=== PATIENT | female | born 1990 | race Caucasian/White ===

== ENCOUNTER → 2024-06-23 10:07 | Outpatient (BNVA) | payer BC, SELFPAY | PROVIDERS: PCP Nurse Practitioner; Visit Provider Nurse Practitioner | DX: O21.0 Mild hyperemesis gravidarum (principal); N92.6 Irregular menstruation, unspecified | CPT/HCPCS: 81025 ==

== ENCOUNTER → 2024-07-22 15:04 | Outpatient (BNVA) | payer BC, SELFPAY | PROVIDERS: PCP Nurse Practitioner; Visit Provider Nurse Practitioner Women's Health | DX: N91.2 Amenorrhea, unspecified (principal) | CPT/HCPCS: 81025 ==

== ENCOUNTER → 2024-07-28 15:18 | Outpatient (BNVA) | payer BC, OTHER, SELFPAY | PROVIDERS: PCP Nurse Practitioner; Visit Provider Nurse Practitioner Women's Health | DX: Z36.87 Encounter for antenatal screening for uncertain dates (principal); Z3A.11 11 weeks gestation of pregnancy | CPT/HCPCS: 76801 ==

== ENCOUNTER → 2024-07-29 14:15 | Outpatient (BNVA) | payer BC, OTHER, SELFPAY | PROVIDERS: PCP Nurse Practitioner; Visit Provider Nurse Practitioner Women's Health | DX: Z34.90 Encounter for supervision of normal pregnancy, unspecified, unspecified trimester (principal); Z34.80 Encounter for supervision of other normal pregnancy, unspecified trimester | CPT/HCPCS: 80307; 84315; 85025; 86592; 86762; 86803; 86850; 86900; 87086; 87340; 87806 ==

== ENCOUNTER 2024-08-03 12:36 | Emergency (ER) | payer OTHER, SELFPAY ==
[2024-08-03 12:50] VITALS: BP 107/68; PULSE 89; RESP 16; TEMP 36.6; O2SAT 100; BMI 17.2
[2024-08-03 13:19] LABS: Basophils % 0.3 %; Eosinophils % 0.2 %; Hematocrit 41.6 % (36-47); Lymphocytes # 1.9 10^3/uL (0.8-4.8); Lymphocytes % 15.8 %; Mean Corpuscular HGB Conc 33.4 g/dL (30-55); Mean Corpuscular Hemoglobin 31.1 pg (27-33); Mean Corpuscular Volume 93.1 fl (85-98); Mean Platelet Volume 9.7 fL (7.4-10.4); Monocytes # 0.7 10^3/uL (0.2-0.9); Monocytes % 5.8 %; Neutrophils # 9.31 10^3/uL (1.8-7.7); Neutrophils % 77.5 %; Nucleated Red Blood Cells % 0 %; Platelet Count 291 10^3/cmm (157-399); Red Blood Count 4.47 10^6/uL (3.85-5.65); Red Cell Distribution Width 12.3 % (12.1-15.1); White Blood Count 12.03 10^3/uL (3.29-11.43)
--- NOTE | 2024-08-03 13:24 | ED_ITS ---
HPI - Nausea/Vomiting/Diarrhea 2 General: Chief complaint: Nausea/Vomiting/Diarrhea Stated complaint: morning sickness that won't go away Time Seen by Provider: 08/03/24 13:07 History of Present Illness: 33-year-old female who is approximately 12 weeks presents emergency room with continued nausea and vomiting concern for dehydration. Her OB had tried to get her stop taking Zofran for a while because she been taking it too much they thought she says. No focal abdominal pain. No altered mental status. No pregnancies symptoms. No bleeding. No vaginal discharge. No fevers. Related Data Home Medications Medication Instructions Recorded Confirmed docosahexaenoic acid 200 mg mg PO DAILY 07/22/24 07/29/24 capsule ( DHA) Previous Rx's Medication Instructions Recorded doxylamine 10 mg-pyridoxine (vit 1 tab PO .COMPLEX #120 tabs 07/29/24 B6) 10 mg tablet,delayed release (Diclegis) promethazine 25 mg tablet 25 mg PO Q6H PRN nausea and 07/29/24 vomiting #30 tabs ondansetron 8 mg disintegrating 8 mg PO Q6H #14 tabs 08/03/24 tablet promethazine 25 mg rectal 25 mg FL Q6H PRN nausea and 08/03/24 suppository vomiting #12 ea Allergies Allergy/AdvReac Type Severity Reaction Status Date / Time amoxicillin [From Augmentin] Allergy Intermediate ALGY-Rash Verified 07/29/24 14:01 clavulanic acid Allergy Intermediate ALGY-Rash Verified 07/29/24 14:01 [From Augmentin] Review of Systems 2 Narrative: Constitutional symptoms: Negative except as documented in HPI. Skin symptoms: Negative except as documented in HPI. Eye symptoms: Negative except as documented in HPI. ENMT symptoms: Negative except as documented in HPI. Respiratory symptoms: Negative except as documented in HPI. Cardiovascular symptoms: Negative except as documented in HPI. Gastrointestinal symptoms: Negative except as documented in HPI. Genitourinary symptoms: Negative except as documented in HPI. Musculoskeletal symptoms: Negative except as documented in HPI. Neurologic symptoms: Negative except as documented in HPI. Psychiatric symptoms: Negative except as documented in HPI. Endocrine symptoms: Negative except as documented in HPI. PFSH ED 2 PFSH: Medical History No pertinent past medical history neghx:htn,dm,thyroid,dvt/pe PCP: Tri ROBBINS Surgical History History of lumpectomy of right breast (~12/2023) December 2023-- self reports fibroadenoma; benign. Performed at [facility] Family History Grandfather Cancer Maternal-bone Paternal- lung from agent orange Grandmother Diabetes maternal Father Hypertension Denies family history of Colon cancer Ovarian cancer Prostate cancer Heart disease Hyperlipidemia Chronic kidney disease (CKD) Breast cancer Bleeding disorder Uterine cancer Thyroid disease Stroke Social History Smoking and tobacco/nicotine status: former use of tobacco/nicotine Female Reproductive History: Para: 2 Spontaneous abortions: No Physical Exam 2 Narrative: EXAM NARRATIVE: General: Alert, no acute distress. Skin: Warm, dry. Head: Normocephalic, atraumatic. Neck: Supple, trachea midline. Eye: Extraocular movements are intact. Ears, nose, mouth and throat: Dry oral mucosa Cardiovascular: Regular, Normal peripheral perfusion. Respiratory: Lungs are clear to auscultation, respirations are non-labored, breath sounds are equal, Symmetrical chest wall expansion. Gastrointestinal: Soft, Nontender, Non distended Musculoskeletal: Normal ROM, no deformity. Neurological: Alert and oriented, No focal neurological deficit observed. Psychiatric: Cooperative, appropriate mood & affect. Course 2 Vital Signs: Vital signs: Vital Signs Temperature 97.9 F 08/03/24 12:50 Pulse Rate 94 08/03/24 15:02 Respiratory Rate 16 08/03/24 12:50 Blood Pressure 115/74 08/03/24 15:02 Pulse Oximetry 98 08/03/24 15:02 Oxygen Delivery Me thod Room Air 08/03/24 15:02 MDM - Nausea/Vomiting/Diarrhea Medical Decision Making Medical decision making: Differential diagnosis for this patient with nausea and vomiting including but not limited to and based on the above HPI, review of systems and physical exam: Urinary tract infection. Appendicitis. Cholecystis. colitis. small bowel obstruction. crohn's flare. pancreatitis. gastritis. peptic ulcer. cyclic vomiting. Viral illness. Influenza. COVID. - Workup - labwork and imaging ordered to evaluate, rule in and rule out above pathologies. Lab Review: Laboratory results were reviewed and interpreted by myself the emergency room physician. White count is 12. Hemoglobin normal at 13.9. BUN and creatinine normal at 10 and 0.5. Urinalysis is negative for infection. I reviewed the patient's medical record. Reexamination: Patient says she is feeling quite a bit better. She is now tolerating some p.o. Fluids and some solids. We are going to give mag citrate at home. Giving some Compazine and Benadryl now so hopefully she can tolerate that at home. Assessment and plan: Nausea and vomiting Dehydration ?Normal saline bolus, IV Zofran, IV Pepcid, IV Compazine and Benadryl. - Discharged home - Discussed plan with patient. Answered any questions. - Evaluation and treatment of this problem were appropriate in the emergency setting. Lab Data 08/03/24 13:08 08/03/24 13:08 Laboratory Results WBC 12.03 10^3/uL (3.29-11.43) H 08/03/24 13:08 RBC 4.47 10^6/uL (3.85-5.65) 08/03/24 13:08 Hgb 13.90 g/dL (11.27-16.99) 08/03/24 13:08 Hct 41.6 % (36-47) 08/03/24 13:08 MCV 93.1 fl (85-98) 08/03/24 13:08 MCH 31.1 pg (27-33) 08/03/24 13:08 MCHC 33.4 g/dL (30-55) 08/03/24 13:08 RDW 12.3 % (12.1-15.1) 08/03/24 13:08 Plt Count 291 10^3/cmm (157-399) 08/03/24 13:08 MPV 9.7 fL (7.4-10.4) 08/03/24 13:08 Neut % (Auto) 77.5 % 08/03/24 13:08 Lymph % (Auto) 15.8 % 08/03/24 13:08 Banner % (Auto) 5.8 % 08/03/24 13:08 Eos % (Auto) 0.2 % 08/03/24 13:08 Baso % (Auto) 0.3 % 08/03/24 13:08 Neut # (Auto) 9.31 10^3/uL (1.8-7.7) H 08/03/24 13:08 Lymph # (Auto) 1.9 10^3/uL (0.8-4.8) 08/03/24 13:08 Banner # (Auto) 0.7 10^3/uL (0.2-0.9) 08/03/24 13:08 Eos # (Auto) 0.0 10^3/uL (0.0-0.8) 08/03/24 13:08 Baso # (Auto) 0.0 10^3/uL (0.0-0.1) 08/03/24 13:08 Nucleated RBC % (auto) 0 % 08/03/24 13:08 Nucleated RBCs # 0.0 /100WBC 08/03/24 13:08 Sodium 135 mmol/L (136-145) L 08/03/24 13:08 Potassium 3.6 mmol/L (3.5-5.1) 08/03/24 13:08 Chloride 100 mmol/L (98-107) 08/03/24 13:08 Carbon Dioxide 22 mmol/L (22-29) 08/03/24 13:08 Anion Gap 16.6 (5-19) 08/03/24 13:08 BUN 10 mg/dL (6-20) 08/03/24 13:08 Creatinine 0.5 mg/dL (0.5-0.9) 08/03/24 13:08 GFR Calculation 143.9 mL/min (90-130) H 08/03/24 13:08 Glucose 111 mg/dL (65-115) 08/03/24 13:08 Calculated Osmolality 280 mOsm/kg (285-295) L 08/03/24 13:08 Calcium 8.8 mg/dL (8.5-10.5) 08/03/24 13:08 Total Bilirubin 1.8 mg/dL (0.15-1.2) H 08/03/24 13:08 AST 18 U/L (0-32) 08/03/24 13:08 ALT 9 U/L (0-33) 08/03/24 13:08 Alkaline Phosphatase 50 U/L (35-105) 08/03/24 13:08 Total Protein 7.8 g/dL (6.6-8.7) 08/03/24 13:08 Albumin 4.2 g/dL (3.5-5.2) 08/03/24 13:08 Globulin 3.6 g/dL (1.3-4.6) 08/03/24 13:08 Urine Color Yellow (Yellow) 08/03/24 14:40 Urine Appearance Clear (CLEAR) 08/03/24 14:40 Urine pH 7.0 (5-7) 08/03/24 14:40 Ur Specific [place] 1.007 (1.005-1.030) 08/03/24 14:40 Urine Protein Negative (Negative) 08/03/24 14:40 Urine Glucose (UA) Negative (Normal) 08/03/24 14:40 Urine Ketones 2+ (Negative) H 08/03/24 14:40 Urine Blood Negative (Negative) 08/03/24 14:40 Urine Nitrate Negative (Negative) 08/03/24 14:40 Urine Bilirubin Negative (Negative) 08/03/24 14:40 Urine Urobilinogen 1.0 mg/dL (Negative) 08/03/24 14:40 Ur Leukocyte Esterase Negative (Negative) 08/03/24 14:40 Urine RBC 0-2 /hpf (0-2) 08/03/24 14:40 Urine WBC 0-5 /hpf (0-5) 08/03/24 14:40 Ur Squamous Epith Cells 0-5 /hpf (0-5) 08/03/24 14:40 Amorphous Sediment Not Reportable 08/03/24 14:40 Urine Bacteria None seen /hpf (NONE) 08/03/24 14:40 Hyaline Casts 0-4 /lpf H 08/03/24 14:40 No radiology studies performed this visit Discharge Plan Discharge Patient Disposition: Home Clinical Impression: Hyperemesis arising during , Dehydration Condition: Stable Prescriptions: New promethazine 25 mg suppository 25 mg FL Q6H PRN (Reason: nausea and vomiting) Qty: 12 0RF ondansetron 8 mg tablet,disintegrating 8 mg PO Q6H Qty: 14 0RF Rx Instructions: Take 1/2-1 tab every 6 hours as needed for nausea and vomiting No Action DHA 200 mg capsule PO DAILY doxylamine-pyridoxine (vit B6) [Diclegis] 10-10 mg tablet,delayed release (DR/EC) 1 tab PO .COMPLEX Qty: 120 0RF Rx Instructions: 2 tabs at hs, then 1 in the am if needed, 1 at noon if needed promethazine 25 mg tablet 25 mg PO Q6H PRN (Reason: nausea and vomiting) Qty: 30 0RF Discharge Orders: Discharge ED (Routine); Ordered 08/03/24 Ordered By: Twila Alfaro Referrals: rTi Gallardo FNP [Primary Care Provider] - Discharge Diet: Advance as tolerated Discharge Activity: Increase activity as tolerated Patient Instructions: Nausea and Vomiting in (ED) Activity Restrictions/Additional Instructions: Thank you for choosing [facility] for your healthcare needs today. Please realize this is an emergency room and that we are providing you with a medical screening exam and this may not be complete and all inclusive of all the testing and or work up that you may need to determine your ailment or severity of your illness. You have been screened and evaluated and felt safe for discharge. Health conditions do change or evolve sometimes and as such it is important that you follow up with your Primary Doctor to be re checked, 3-5 days is a general good time frame for follow up. 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
[2024-08-03 13:38] LABS: Alanine Aminotransferase 9 U/L (0-33); Albumin Level 4.2 g/dL (3.5-5.2); Alkaline Phosphatase 50 U/L (35-105); Anion Gap 16.6 (5-19); Aspartate Amino Transferase 18 U/L (0-32); Blood Urea Nitrogen 10 mg/dL (6-20); Calcium 8.8 mg/dL (8.5-10.5); Carbon Dioxide 22 mmol/L (22-29); Chloride 100 mmol/L (98-107); Creatinine Clr Calc Pharmacy 124.9076; Globulin 3.6 g/dL (1.3-4.6); Glomerular Filtration Rate 143.9 mL/min (90-130); Glucose 111 mg/dL (65-115); Osmolality Calculated 280 mOsm/kg (285-295); Potassium 3.6 mmol/L (3.5-5.1); Sodium 135 mmol/L (136-145); Total Bilirubin 1.8 mg/dL (0.15-1.2); Total Protein 7.8 g/dL (6.6-8.7)
[2024-08-03] MEDS: sodium chloride 0.9% 1,000 ML 999 ML IV (13:41)
[2024-08-03] MEDS: ondansetron 2 mg/ML SDV 2 mL 8 MG IVP (13:43)
[2024-08-03] MEDS: famotidine 20 mg/2 mL INJ 40 MG IVP (13:44)
[2024-08-03] MEDS: magnesium citrate Btl 296 mL PO (13:48)
[2024-08-03 15:02] VITALS: BP 115/74; PULSE 94; O2SAT 98
[2024-08-03 15:04] LABS: Bilirubin Urine Negative (Negative); Blood Urine Negative (Negative); Glucose Urine UA Negative (Normal); Ketones Urine 2+ (Negative); Leukocyte Esterase Urine Negative (Negative); Nitrate Urine Negative (Negative); Protein Urine Negative (Negative); Specific Gravity, Urine 1.007 (1.005-1.030); Urine Appearance Clear (CLEAR); Urine Color Yellow (Yellow)
[2024-08-03 15:09] LABS: Add Urine Microscopic? YES; Bacteria Urine None Seen /hpf; Hyaline Casts Urine 0-4 /lpf; RBC Urine 0-2 /hpf (0-2); Squamous Epithelial Cell Urine 0-5 /hpf (0-5); WBC Urine 0-5 /hpf (0-5)
[2024-08-03] MEDS: diphenhydrAMINE 50 mg/mL SDV 1mL 25 MG IVP (15:32)
[2024-08-03] MEDS: prochlorperazine 10 mg/2 mL Inj IVP (15:32)
[2024-08-03 15:45] VITALS: BP 124/71; PULSE 70; O2SAT 100
== END 2024-08-03 15:47 | disposition home or self-care (01) ==
PROVIDERS: Physician Assistant; Emergency Provider Emergency Medicine; PCP Nurse Practitioner
DX: O21.9 Vomiting of pregnancy, unspecified (principal); E86.0 Dehydration; Z87.891 Personal history of nicotine dependence
CPT/HCPCS: 36415; 80053; 81001; 85025; 96361; 96374; 96375; 99284; J0780; J1200; J2405; J3490; J7030

== ENCOUNTER → 2024-08-09 14:03 | Outpatient (BNVA) | payer OTHER, SELFPAY | PROVIDERS: PCP Nurse Practitioner; Visit Provider Obstetrics & Gynecology | DX: Z34.80 Encounter for supervision of other normal pregnancy, unspecified trimester (principal); Z34.90 Encounter for supervision of normal pregnancy, unspecified, unspecified trimester | CPT/HCPCS: 84315; 87491; 87591 ==

== ENCOUNTER → 2024-09-27 14:16 | Outpatient (BNVA) | payer OTHER, SELFPAY | PROVIDERS: PCP Nurse Practitioner; Visit Provider Obstetrics & Gynecology | DX: Z34.80 Encounter for supervision of other normal pregnancy, unspecified trimester (principal); Z36.9 Encounter for antenatal screening, unspecified | CPT/HCPCS: 76805 ==

== ENCOUNTER → 2024-10-29 08:35 | Outpatient (BNVA) | payer OTHER, SELFPAY | PROVIDERS: PCP Nurse Practitioner; Visit Provider Obstetrics & Gynecology | DX: Z34.80 Encounter for supervision of other normal pregnancy, unspecified trimester (principal) | CPT/HCPCS: 82950; 84315 ==

== ENCOUNTER → 2024-11-17 10:04 | Outpatient (BNVA) | payer OTHER, SELFPAY | PROVIDERS: PCP Nurse Practitioner; Visit Provider Obstetrics & Gynecology | DX: Z34.80 Encounter for supervision of other normal pregnancy, unspecified trimester (principal) | CPT/HCPCS: 84315 ==

== ENCOUNTER → 2024-12-29 13:28 | Outpatient (BNVA) | payer OTHER, SELFPAY | PROVIDERS: PCP Nurse Practitioner; Visit Provider Nurse Practitioner Women's Health | DX: Z34.80 Encounter for supervision of other normal pregnancy, unspecified trimester (principal) | CPT/HCPCS: 76816; 84315 ==

== ENCOUNTER → 2025-01-13 13:02 | Outpatient (BNVA) | payer OTHER, SELFPAY | PROVIDERS: PCP Nurse Practitioner; Visit Provider Obstetrics & Gynecology | DX: Z34.80 Encounter for supervision of other normal pregnancy, unspecified trimester (principal) | CPT/HCPCS: 84315; 87081 ==

== ENCOUNTER → 2025-01-20 10:36 | Outpatient (BNVA) | payer OTHER, SELFPAY | PROVIDERS: PCP Nurse Practitioner; Visit Provider Obstetrics & Gynecology | DX: Z34.80 Encounter for supervision of other normal pregnancy, unspecified trimester (principal) | CPT/HCPCS: 84315 ==

== ENCOUNTER → 2025-01-26 10:51 | Outpatient (BNVA) | payer OTHER, SELFPAY | PROVIDERS: PCP Nurse Practitioner; Visit Provider Obstetrics & Gynecology | DX: Z34.83 Encounter for supervision of other normal pregnancy, third trimester (principal) | CPT/HCPCS: 84315; 85025 ==

== ENCOUNTER → 2025-02-02 10:01 | Outpatient (BNVA) | payer OTHER, SELFPAY | PROVIDERS: PCP Nurse Practitioner; Visit Provider Obstetrics & Gynecology | DX: Z34.80 Encounter for supervision of other normal pregnancy, unspecified trimester (principal) | CPT/HCPCS: 84315 ==

== ENCOUNTER 2025-02-05 07:06 | Inpatient (IN) | payer OTHER, SELFPAY ==
[2025-02-05] VITALS (63 sets, daily range): BP systolic 102–131; BP diastolic 60–83; PULSE 75–130; RESP 15–17; TEMP 36.4–36.8; O2SAT 98–100; BMI 22.8
[2025-02-05] MEDS: miSOPROStol 100 mcg tablet 25 MCG VAGINAL (08:52)
[2025-02-05 09:08] LABS: Basophils % 0.3 %; Eosinophils # 0.1 10^3/uL (0.0-0.8); Eosinophils % 0.6 %; Hematocrit 31.7 % (36-47); Lymphocytes # 1.7 10^3/uL (0.8-4.8); Lymphocytes % 17.7 %; Mean Corpuscular HGB Conc 32.5 g/dL (30-55); Mean Corpuscular Volume 92.4 fl (85-98); Mean Platelet Volume 11.6 fL (7.4-10.4); Monocytes # 0.7 10^3/uL (0.2-0.9); Monocytes % 7.5 %; Nucleated Red Blood Cells % 0 %; Platelet Count 238 10^3/cmm (157-399); Red Blood Count 3.43 10^6/uL (3.85-5.65); Red Cell Distribution Width 13.3 % (12.1-15.1)
[2025-02-05 10:11] LABS: Amphetamines Screen Urine Negative (Negative); Barbiturates Screen Urine Negative (Negative); Benzodiazepines Screen Urine Negative (Negative); Cocaine Screen Urine Negative (Negative); Opiate Screen Urine Negative (Negative); PCP Screen Urine Negative (Negative); THC Screen Urine Positive (Negative)
--- NOTE | 2025-02-05 10:57 | PM.OPHPUD ---
Labor & Delivery H&P Update Date of Procedure: February 05, 2025 Date H&P Performed: 02/02/25 Changes to previous documentation: 34-year-old female G3, P2 at 39.2 weeks gestation by 11-week ultrasound with VICENTE 02/10/2025. Admitted to labor and delivery for elective induction of labor. Cytotec for cervical ripening has been reviewed and consent signed. Patient's records have been reviewed. The only change in her report, patient admits to using marijuana 2 months ago (current positive UDS with marijuana.) EFM?category 1 with contractions q. 1 to 2 minutes after first dose of Cytotec. Cervix?1 cm / 50%/-3 vertex. Admission Diagnosis: Primary indication for procedure: Elective induction of labor with cervical ripening with Cytotec. Planned procedure: Elective induction of labor. Related Problem List Diagnoses (1) 39 weeks gestation of : GBS negative History of marijuana use (2) Positive urine drug screen: (3) Multigravida in third trimester:
[2025-02-05] MEDS: ondansetron 2 mg/ML SDV 2 mL 4 MG IVP (14:08)
[2025-02-05] MEDS: sodium chloride 0.9% 1,000 ML 999 ML IV ×2 (14:14→15:20)
[2025-02-05] MEDS: ROPivacaine syringe 100 MG/50 ML SYRINGE 10 MG EPIDURAL ×2 (14:50→17:27)
--- NOTE | 2025-02-05 14:53 | P.ANESASSM_ITS ---
Pre-Anesthetic Assessment Height/Weight: Height 1.68 m Weight 64.183 kg Temp Pulse Resp BP Pulse Ox O2 Del Method 97.9 F 93 17 117/69 100 Room Air 02/05/25 08:30 02/05/25 14:51 02/05/25 08:30 02/05/25 14:51 02/05/25 14:49 02/05/25 09:41 Preop Diagnosis: IUp epidural Familial anesthetic complications: None Social No alcohol and No tobacco Exam alert, oriented x 3, clear to auscultation bilaterally and regular rate & rhythm Anesthetic Plan ASA status: 2 Anesthesia: Regional (specify below) Medications/Allergies Home Medications ?Medication ?Instructions ?Recorded ?Confirmed ?Last Taken ?Type No Known Home Medications 02/02/2501/12 Unknown History Allergies Allergy/AdvReac Type Severity Reaction Status Date / Time amoxicillin (From Augmentin) Allergy Intermediate ALGY-Rash Verified 02/02/25 10:24 clavulanic acid (From Allergy Intermediate ALGY-Rash Verified 02/02/25 10:24 Augmentin) Current Medications Generic Name Dose Route Start Last Admin Trade Name Freq PRN Reason Stop Dose Admin Ropivacaine 100 mg in 50 mls @ 10 mls/hr 02/05/25 13:45 02/05/25 14:50 Naropin Syringe EPIDURAL 10 mls/hr .Q5H IGGY Administration Sodium Chloride 1,000 mls @ 999 mls/hr 02/05/25 13:38 02/05/25 14:14 Sodium Chloride 0.9% IV 999 mls/hr .Q1H1M PRN Administration See label comments Misoprostol 25 mcg 02/05/25 08:45 02/05/25 08:52 Misoprostol 100 Mcg Tablet VAGINAL 02/05/25 16:46 25 mcg Q4H IGGY Administration Ondansetron HCl 4 mg 02/05/25 08:30 02/05/25 14:08 Ondansetron 2 Mg/Ml Sdv 2 Ml IVP 4 mg Q4H PRN Administration NAUSEA AND VOMITING PFSH Anesthesia Medical History No pertinent past medical history neghx:htn,dm,thyroid,dvt/pe PCP: Tri KELLY -OZ Surgical History History of lumpectomy of right breast (~12/2023) December 2023-- self reports fibroadenoma; benign. Performed at [facility] Family History Grandfather Cancer Maternal-bone Paternal- lung from agent orange Grandmother Diabetes maternal Father Hypertension Denies family history of Colon cancer Ovarian cancer Prostate cancer Heart disease Hyperlipidemia Chronic kidney disease (CKD) Breast cancer Bleeding disorder Uterine cancer Thyroid disease Stroke Social History Smoking and tobacco/nicotine status: former use of tobacco/nicotine Female Reproductive History : 3 Para: 2 Spontaneous abortions: No Data Anesthesia 02/05/25 08:40 Short CBC 02/05/25 Range/Units 08:40 WBC 9.60 (3.29-11.43) 10^3/uL Hgb 10.30 L (11.27-16.99) g/dL Hct 31.7 L (36-47) % MCV 92.4 (85-98) fl Plt Count 238 (157-399) 10^3/cmm Neut % (Auto) 73.0 % Neut # (Auto) 7.00 (1.8-7.7) 10^3/uL Blood Bank 02/05/25 02/05/25 08:40 09:36 Blood Type Cancelled A Positive Rho(D) Type Cancelled Rh positive Antibody Screen Cancelled Negative Cardiac Studies: 2 No Data to Display Anesthesia Procedures Epidural Time Out Performed: Yes Consents Signed: Procedure Consent Consent: requested by attending/covering physician, from patient, from other, risks and benefits reviewed and patient agrees to proceed Lumbar Level: L2-L3 Epidural position: sitting Epidural procedure: sterile prep of area, 1% lidocaine to numb the area, 18 g needle, negative for paresthesia passed, neg for paresthesia, test dose given, 1.5% xylocaine 1:200k epi (5 cc), 0.2% Ropivacaine bolus ml (5), placed PCEA, no systemic response, sterile dressing applied, L.U.D. no apparent complications and 0.2% Ropiavacaine @ mls/hr (10)
--- NOTE | 2025-02-05 15:57 | P.PN_ITS ---
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 Patient received epidural for pain management during labor. EFM?category 1 Cervix?3 cm / 70%/-2 with bulging membranes. AROM?copious clear fluid noted. Labor: Station: -4 Amniotic Membrane Status: Intact Monitor Mode: Palpation Contraction Pattern: Regular Status: Category I Vitals/I&O/Wt Last Vital Signs Temp 97.9 F 02/05/25 08:30 Pulse 86 02/05/25 15:52 Resp 17 02/05/25 08:30 BP 120/77 02/05/25 15:52 Pulse Ox 100 02/05/25 15:19 O2 Del Method Room Air 02/05/25 09:41 02/05/25 02/05/25 02/05/25 06:59 14:59 22:59 Intake Total 1000 / 1000 Balance 1000 / 1000 Weight last 48 hrs Weight 64.183 kg Physical Exam 2 Const: COMMON NORMALS: patient oriented x3 Cardio: COMMON NORMALS: regular rate, regular rhythm and No murmurs present (Cardio) RATE: regular rate RHYTHM: regular rhythm Back/Pelvis: OTHER: Cervix as above Inside the introitus there is a large condylomatous tag noted. Extremity: COMMON NORMALS: normal to inspection, no clubbing, cyanosis or edema and no calf tenderness Neuro: COMMON NORMALS: patient oriented x3, CN's II-XII intact bilaterally, moves all extremities and deep tendon reflexes 2+ bilaterally Urinary Catheter Management: Gresham Latex: Cath Placed During This Visit: yes Urinary Catheter Date of Insertion: 02/05/25 Urinary Catheter Time of Insertion: 15:20 Data 02/05/25 08:40 A&P Assessment and plan (1) 39 weeks gestation of : (2) Positive urine drug screen: (3) Multigravida in third trimester: (4) Supervision of other normal : PDMP PDMP Reviewed: Not Reviewed Attestations 2 Medical Necessity Statement*: Admission to labor and delivery for elective induction of labor at 39.2 weeks gestation. Coding Level of Care Code Acute Code for Chg Fwd Diagnoses 39 weeks gestation of Z3A.39 Positive urine drug screen R82.5 Multigravida in third trimester Z34.83 Supervision of other normal Z34.80
[2025-02-05] MEDS: oxytocin 30 UNIT/500 ML BAG 600 UNIT IV (18:36)
--- NOTE | 2025-02-05 18:45 | P.PCNOB_ITS ---
Delivery Note: Date of delivery: February 05, 2025 Pre-delivery diagnoses: 39.2-week gestation GBS negative Multigravida Desires female sterilization Post-delivery diagnoses: Status post spontaneous vaginal delivery viable baby girl 7 pounds 13 ounces Procedure: 34-year-old female G3, P3 delivered a vi able baby girl via . The vertex presented in OA presentation, examination for nuchal cord was done with none found. The anterior followed by the posterior shoulders delivered with the remainder the baby's body to follow. Spontaneous cry was noted. Delay in clamping the cord, followed by clamping and cutting of the cord. The baby was placed on the mother's abdomen, where nursing staff was present for assessment and evaluation. Cord pH arterial and venous were drawn as well as cord blood and handed off. The uterus was massaged and the placenta presented in a Marti presentation with trailing membranes. IV Pitocin solution was started in a bolus manner. The uterus and vaginal vault were explored several clots removed. A 2 cm vaginal laceration was noted this was approximated and repaired with 2-0 Vicryl with good hemostasis. The uterus again was massaged and was noted to be firm with minimal bleeding. The peritoneum was cleansed, the under the but drapes were changed. Mother repositioned and is in stable satisfactory condition. Op report anesthesia: Epidural Delivering Physician: Payton Rizzo DO Estimated blood loss (mL): 300 Findings: Viable baby girl 7 pounds 13 ounces Apgars 8/9 Delivery: viable baby girl 7 pounds 13 ounces Post-Delivery Status: Stable History History History 3 Term 2 0 Miscarriages/Ectopic 0 Living Children 2 Past Pregnancies Del. Date GA/Weeks Outcome Route Wt Inf Gender Labor Lgth Comp. Anesth esia Location Unknown 39 live - full term Vaginal 3.544 kg Female regional A&P Assessment and plan (1) Spontaneous vaginal delivery: Began care. (2) 39 weeks gestation of : (3) Positive urine drug screen: (4) Multigravida in third trimester: (5) Consultation for female sterilization: Nursing staff reviewed sterilization with patient. Patient states plans on sterilization. PDMP PDMP Reviewed: Not Reviewed Coding Level of Care Code Acute Code for Chg Fwd Diagnoses Spontaneous vaginal delivery O80 39 weeks gestation of Z3A.39 Positive urine drug screen R82.5 Multigravida in third trimester Z34.83 Consultation for female sterilization Z30.09
[2025-02-05] MEDS: dextrose 5%-lactated ringers 1,000 ML 125 ML IV (19:20)
[2025-02-05] MEDS: ibuprofen 800 mg tablet PO (21:07)
[2025-02-05] MEDS: HYDROcodone-acetaminophen 5-325 mg Tablet PO (21:55)
[2025-02-06 01:00] VITALS: BP 110/71; PULSE 101; RESP 15; TEMP 36.8; O2SAT 99
[2025-02-06] MEDS: HYDROcodone-acetaminophen 5-325 mg Tablet PO (05:45)
[2025-02-06] MEDS: benzocaine-menthol 78 gm Canister 1 SPRAY TOPICAL (05:46)
[2025-02-06 06:00] VITALS: BP 95/62; PULSE 85; RESP 16; TEMP 36.8; O2SAT 98
[2025-02-06 06:23] LABS: Mean Corpuscular HGB Conc 32.3 g/dL (30-55); Mean Corpuscular Hemoglobin 29.8 pg (27-33); Mean Platelet Volume 11.6 fL (7.4-10.4); Platelet Count 190 10^3/cmm (157-399); Red Blood Count 3.26 10^6/uL (3.85-5.65); Red Cell Distribution Width 13.1 % (12.1-15.1); White Blood Count 13.35 10^3/uL (3.29-11.43)
[2025-02-06] MEDS: ibuprofen 800 mg tablet PO ×3 (09:12→20:03)
[2025-02-06] MEDS: docusate sodium 100 mg Capsule PO ×2 (09:12→20:03)
[2025-02-06] MEDS: PRENATAL VIT NO.130/IRON/FOLIC 1 EACH TABLET PO (09:12)
[2025-02-06 09:15] VITALS: BP 126/69; PULSE 79; RESP 16; O2SAT 98
--- NOTE | 2025-02-06 14:35 | P.PN_ITS ---
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 with no complaints. Patient denies headaches blurred vision chest pain or shortness of breath. Patient is tolerating regular diet, voiding and ambulating in hallway. Patient is breast-feeding well. Discussion of expectations reviewed, patient verbalizes understanding. Labor: Station: +1 Amniotic Membrane Status: Intact Monitor Mode: Palpation Contraction Pattern: Regular Status: Category I Vitals/I&O/Wt Last Vital Signs Temp 98.2 F 02/06/25 06:00 Pulse 79 02/06/25 09:15 Resp 16 02/06/25 09:15 BP 126/69 02/06/25 09:15 Pulse Ox 98 02/06/25 09:15 O2 Del Method Room Air 02/06/25 09:15 02/05/25 02/06/25 02/06/25 22:59 06:59 14:59 Intake Total 2982.00 / 2982.00 Output Total 400 / 400 Balance 2582.00 / 2582.00 Weight last 48 hrs Weight 64.183 kg Physical Exam 2 Back/Pelvis: OTHER: Fundus firm, well below umbilicus. Lochia light. Extremity: COMMON NORMALS: normal to inspection and no clubbing, cyanosis or edema Urinary Catheter Management: Gresham Latex: Cath Placed During This Visit: yes, but has since been removed by the nurse Reason for Continuing Indwelling Catheter: Decision to DC Catheter Urinary Catheter Date of Insertion: 02/05/25 Urinary Catheter Time of Insertion: 15:20 Date Urinary Catheter Removed: 02/05/25 Time Urinary Catheter Discontinued: 18:18 Data 02/06/25 06:00 A&P Assessment and plan (1) Anemia: Asymptomatic anemia (2) 39 weeks gestation of : (3) Positive urine drug screen: (4) Multigravida in third trimester: (5) Spontaneous vaginal delivery: PDMP PDMP Reviewed: Not Reviewed Attestations 2 Medical Necessity Statement*: Admission to labor and delivery for induction of labor. Coding Level of Care Code Acute Code for Chg Fwd Diagnoses Anemia D64.9 39 weeks gestation of Z3A.39 Positive urine drug screen R82.5 Multigravida in third trimester Z34.83 Spontaneous vaginal delivery O80
[2025-02-06 16:51] VITALS: BP 123/76; PULSE 85; RESP 15; TEMP 36.6; TEMP 36.7; O2SAT 99
[2025-02-06 21:20] VITALS: BP 104/73; PULSE 93; RESP 16; TEMP 36.6; TEMP 36.7; O2SAT 98
[2025-02-07 04:31] VITALS: BP 105/64; PULSE 79; RESP 15; TEMP 36.9; O2SAT 98
--- NOTE | 2025-02-07 08:00 | ANE.PACU2 ---
Inpatient post-anesthesia follow up: Airway intact: Yes Vital signs: Temperature 97.4 F Pulse Rate 97 Respiratory Rate 16 Blood Pressure 115/78 Pulse Oximetry 99 Oxygen Delivery Me thod Room Air Oxygen Flow Rate Fraction of Inspir ed Oxygen Hydration adequate: Yes Nausea and vomiting: No Pain level: 1 Mental status: Baseline Epidural Start/End: Epidural Start Date: 02/05/25 Epidural Start Time: 14:33 Epidural End Date: 02/05/25 Epidural End Time: 20:40
--- NOTE | 2025-02-07 08:44 | PM.OBGYDC ---
Discharge Providers MOBILITY ARCHITECT Date of Admission: 02/05/25 07:06 Date of Discharge: 02/07/25 Attending Provider at Admission: Payton Rizzo DO Attending Provider at Discharge: Payton Rizzo DO Primary MOBILITY ARCHITECT: Dr. Ishan Crabtree Primary Care Provider: Tri Gallardo APN Diagnoses at Discharge Discharge Diagnosis (1) Anemia: Details from hospital stay: 34-year-old female G3, P3 s/p viable baby girl on 02/05/2025. Patient was admitted for induction of labor which progressed in an uneventful manner. Patient's stay has progressed well. Patient denies headaches, blurred vision, chest pain or shortness of breath. Patient is ambulating in hallway, tolerating a regular diet, voiding and breast-feeding. Patient denies excessive bleeding. Discussion of expectations and discharge orders to include no strenuous activity, no sexual intercourse x 6 weeks. Patient is encouraged to continue vitamins and iron over the next 6 weeks and as long as she is breast-feeding. Patient is encouraged to take ibuprofen or Tylenol if needed for pain at home. Discussion of marijuana use discouraged. Patient understands and states that she has not smoked marijuana in over 2 months. Continuation of a high-fiber diet with increased fluids is encouraged. Patient verbalizes understanding. VSS, afebrile Status: Acute (2) 39 weeks gestation of : Details from hospital stay: See above Status: Acute (3) Positive urine drug screen: Details from hospital stay: Asymptomatic anemia Status: Acute (4) Multigravida in third trimester: Status: Acute (5) Spontaneous vaginal delivery: Status: Acute Reason for Visit Reason for Visit: IOL Brief History: Patient was admitted to labor and delivery on 02/05/2025 for elective induction of labor. 1 dose of Cytotec for cervical ripening was used followed by AROM and patient progressed to an uneventful delivery of a viable baby girl. Hospital Course Hospital Course See above Information Peripartum Data: Infant Delivery Method: Vaginal Laceration description: None Episiotomy description: None complications: none Physical Exam Const: COMMON NORMALS: patient oriented x3 Cardio: COMMON NORMALS: regular rate and regular rhythm RATE: regular rate RHYTHM: regular rhythm Back/Pelvis: OTHER: Abdomen?soft, fundus firm below the umbilicus. Lochia?light rubra. Extremity: COMMON NORMALS: normal to inspection, no clubbing, cyanosis or edema and no calf tenderness Neuro: COMMON NORMALS: patient oriented x3, CN's II-XII intact bilaterally, moves all extremities and deep tendon reflexes 2+ bilaterally Urinary Catheter Management: [place] Latex: Cath Placed During This Visit: yes, but has since been removed by the nurse Reason for Continuing Indwelling Catheter: Decision to DC Catheter Urinary Catheter Date of Insertion: 02/05/25 Urinary Catheter Time of Insertion: 15:20 Date Urinary Catheter Removed: 02/05/25 Time Urinary Catheter Discontinued: 18:18 History History History 3 Term 3 0 Miscarriages/Ectopic 0 Living Children 3 Past Pregnancies Del. Date GA/Weeks Outcome Route Wt Inf Gender Labor Lgth Comp. Anesthesia Location 02/05/25 39 live - full term Vaginal 3.544 kg Female regional Discharge Data Studies Completed and Pending Laboratory Results WBC 13.35 10^3/uL (3.29-11.43) H 02/06/25 06:00 RBC 3.26 10^6/uL (3.85-5.65) L 02/06/25 06:00 Hgb 9.70 g/dL (11.27-16.99) L 02/06/25 06:00 Hct 30.0 % (36-47) L 02/06/25 06:00 MCV 92.0 fl (85-98) 02/06/25 06:00 MCH 29.8 pg (27-33) 02/06/25 06:00 MCHC 32.3 g/dL (30-55) 02/06/25 06:00 RDW 13.1 % (12.1-15.1) 02/06/25 06:00 Plt Count 190 10^3/cmm (157-399) 02/06/25 06:00 MPV 11.6 fL (7.4-10.4) H 02/06/25 06:00 Neut % (Auto) 73.0 % 02/05/25 08:40 Lymph % (Auto) 17.7 % 02/05/25 08:40 Real % (Auto) 7.5 % 02/05/25 08:40 Eos % (Auto) 0.6 % 02/05/25 08:40 Baso % (Auto) 0.3 % 02/05/25 08:40 Neut # (Auto) 7.00 10^3/uL (1.8-7.7) 02/05/25 08:40 Lymph # (Auto) 1.7 10^3/uL (0.8-4.8) 02/05/25 08:40 Real # (Auto) 0.7 10^3/uL (0.2-0.9) 02/05/25 08:40 Eos # (Auto) 0.1 10^3/uL (0.0-0.8) 02/05/25 08:40 Baso # (Auto) 0.0 10^3/uL (0.0-0.1) 02/05/25 08:40 Nucleated RBC % (auto) 0 % 02/05/25 08:40 Nucleated RBCs # 0.0 /100WBC 02/05/25 08:40 Urine Opiates Screen Negative ng/mL (Negative) 02/05/25 09:55 Ur Barbiturates Screen Negative ng/mL (Negative) 02/05/25 09:55 Ur Phencyclidine Scrn Negative ng/mL (Negative) 02/05/25 09:55 Ur Amphetamines Screen Negative ng/mL (Negative) 02/05/25 09:55 U Benzodiazepines Scrn Negative ng/mL (Negative) 02/05/25 09:55 Urine Cocaine Screen Negative ng/mL (Negative) 02/05/25 09:55 U Marijuana (THC) Screen Positive ng/mL (Negative) H 02/05/25 09:55 Blood Type A Positive 02/05/25 09:36 Rho(D) Type Rh positive 02/05/25 09:36 Antibody Screen Negative 02/05/25 09:36 Vitals Last Vital Signs Temp 98.4 F 02/07/25 04:31 Pulse 79 02/07/25 04:31 Resp 15 02/07/25 04:31 BP 105/64 02/07/25 04:31 Pulse Ox 98 02/07/25 04:31 O2 Del Method Room Air 02/07/25 04:31 Results Labs OB ([facility]): Obstetrics US 12/29/24 Blood Type A Positive 02/05/25 Antibody Screen Negative 02/05/25 Hct 30.0 % (36-47) L 02/06/25 Hgb 9.70 g/dL (11.27-16.99) L 02/06/25 Rho(D) Type Rh positive 02/05/25 Plt Count 190 10^3/cmm (157-399) 02/06/25 Hep Bs Antigen Non-reactive (NON-REACTIVE) 07/29/24 Hep Bs Ag Confirmation Not Reportable 07/29/24 Hepatitis C Antibody Non-reactive (Nonreactive) 07/29/24 Rubella IgG Antibody 23.9 IU/mL (0.0-10.0) H 07/29/24 RPR Nonreactive (Nonreactive) 07/29/24 HIV 1&2 Ab & HIV 1 Ag Non-reactive (Non-Reactiv) 07/29/24 C.trachomatis RNA (TMA) Not detected (NOT DETECTED) 08/09/24 N.gonorrhoeae RNA (TMA) Not detected (NOT DETECTED) 08/09/24 T. vaginalis Amp RNA Not detected (NOT DETECTED) 08/09/24 Chlamydia/GC Comment See note 08/09/24 Glucose 1 Hr 50 gm 141 mg/dL (85-140) H 10/29/24 HCG, Qual Positive (Negative) H 07/22/24 Urine Opiates Screen Negative ng/mL (Negative) 02/05/25 Ur Barbiturates Screen Negative ng/mL (Negative) 02/05/25 Ur Phencyclidine Scrn Negative ng/mL (Negative) 02/05/25 Ur Amphetamines Screen Negative ng/mL (Negative) 02/05/25 U Benzodiazepines Scrn Negative ng/mL (Negative) 02/05/25 Urine Cocaine Screen Negative ng/mL (Negative) 02/05/25 U Marijuana (THC) Screen Positive ng/mL (Negative) H 02/05/25 Micro Urine Specimen 07/29/24 Discharge Plan Discharge Patient Disposition: Home Condition: Stable Prescriptions: No Action No Known Home Medications Discharge Orders: Discharge Order (Routine); Ordered 02/07/25 Ordered By: Payton Rizzo Referrals: Ya Montgomery NP [Nurse Practitioner] - 03/15/25 8:00 am Ishan Crabtree MD [Physician] - Discharge Diet: Regular Discharge Activity: Increase activity as tolerated Patient Instructions: Depression (DC), Bleeding (DC), Preeclampsia and Eclampsia After Delivery (GEN), Hemorrhage (DC), OB Discharge Report, Opioid Safety, OB Home Care, OB Vaginal Deliveries - [facility], Abnormal Bleeding Activity Restrictions/Additional Instructions: No strenuous activity No sexual intercourse x 6 weeks Patient to continue her vitamins and iron throughout breast-feeding. Patient's Health Concerns: course Asymptomatic anemia Assessment: S/p viable female Multigravida Asymptomatic anemia Plan of Treatment: Discharge patient to home Follow-up appointment to be made for 4 to 6 weeks for visit. Discharge Attestations MOBILITY ARCHITECT Time Spent in Discharge Care*: less than 30 min Coding Level of Care Code Acute Code for Chg Fwd Diagnoses Anemia D64.9 39 weeks gestation of Z3A.39 Positive urine drug screen R82.5 Multigravida in third trimester Z34.83 Spontaneous vaginal delivery O80
[2025-02-07] MEDS: PRENATAL VIT NO.130/IRON/FOLIC 1 EACH TABLET PO (09:25)
[2025-02-07] MEDS: ibuprofen 800 mg tablet PO (09:25)
[2025-02-07] MEDS: docusate sodium 100 mg Capsule PO (09:25)
[2025-02-07 09:29] VITALS: BP 115/78; PULSE 97; RESP 16; TEMP 36.3
[2025-02-07 09:56] VITALS: BP 115/78; PULSE 97; RESP 16; TEMP 36.3; O2SAT 99
== END 2025-02-07 10:05 | disposition home or self-care (01) | DRG 806 ==
LOC: OPOB 07:07 → OBGYN 07:07
PROVIDERS: Admitting Provider Obstetrics & Gynecology; PCP Nurse Practitioner; Visit Provider Obstetrics & Gynecology
DX: O99.324 Drug use complicating childbirth (principal); O71.4 Obstetric high vaginal laceration alone; Z37.0 Single live birth; F12.90 Cannabis use, unspecified, uncomplicated; Z3A.39 39 weeks gestation of pregnancy; O90.81 Anemia of the puerperium
CPT/HCPCS: 36415; 51702; 59409; 80306; 85025; 85027; 86850; 86900; 96374; J2405; J2590; J2795; J7030; J7121; J9999